=== PATIENT | female | born 1955 ===

== ENCOUNTER 2020-10-04 10:41 | Emergency (ER) | payer MEDICARE, OTHER ==
[2020-10-04 10:59] VITALS: BP 128/80; PULSE 73
[2020-10-04] MEDS ORDERED: Ondansetron 4 MG/2 ML SDV IVPUSH ONE (11:16)
[2020-10-04] MEDS ORDERED: Sodium Chloride 0.9% 10 ML Syringe FLUSH PRN ×2 (11:17→11:21)
--- NOTE | 2020-10-04 11:20 | EDM.PDOC ---
ED HPI GENERAL MEDICAL PROBLEM - General Chief Complaint: Abdominal Pain Stated Complaint: LOW ABDOMINAL PAIN Time Seen by Provider: 10/04/20 11:03 Source of Information: Reports: Patient, RN Notes Reviewed History Limitations: Reports: No Limitations - History of Present Illness INITIAL COMMENTS - FREE TEXT/NARRATIVE: Patient is a 65-year-old female who presents to the ER today for her ongoing abdominal pain. Patient states that she has a history of diverticulitis, and it feels similar to that. She notes that this started Sunday night, just has gotten progressively worse. She notes that this pain is in her low abdomen, and seems to radiate up her sides at times. States that she has had nausea but no vomiting. Her last bowel movement was normal for her on Sunday however she states it was quite hard and she had to strain a little bit. She has had no diarrhea. States that when she eats anything at all, she feels quite bloated. She has had no fevers or chills, cough or shortness of breath, or any other sick-like symptoms. She notes that she has had some slight dysuria at the start of her urination however this is transient and is not there at this time. Harshal rasmussen has had a hysterectomy but still retains her ovaries. Notes that she did not eat anything for breakfast this morning except for she had a little bit of water. Her primary care provider is in [facility]. Lower Abdomen Pain Score (Numeric/FACES): 6 - Related Data Allergies Allergy/AdvReac Type Severity Reaction Status Date / Time No Known Allergies Allergy Verified 10/04/20 10:58 Home Meds: Home Meds Amoxicillin/Clavulanate K [Augmentin 875-125 MG] 1 tab PO BID #14 tablet [Rx] Ascorbic Acid/Vitamin E/Biotin [Hair Skin Nails-Biotin Gummies] 1 tab PO DAILY 10/04/20 [History] Levothyroxine 125 mcg PO DAILY 10/04/20 [History] Rosuvastatin Calcium 10 mg PO DAILY 10/04/20 [History] Past Medical History Respiratory History: Reports: COPD Gastrointestinal History: Reports: Other (See Below) Other Gastrointestinal History: diverticulitis Endocrine/Metabolic History: Reports: Hypothyroidism - Past Surgical History Cardiovascular Surgical History: Reports: Cardiac Ablation GI Surgical History: Reports: Other (See Below) Other GI Surgeries/Procedures: abscessed diverticuli Social & Family History - Tobacco Use Tobacco Use Status *Q: Current Every Day Tobacco User Years of Tobacco use: 50 Packs/Tins Daily: 1 - Recreational Drug Use Recreational Drug Use: No ED ROS GENERAL - Review of Systems Review Of Systems: Comprehensive ROS is negative, except as noted in HPI. ED EXAM, GI/ABD - Physical Exam Exam: See Below Exam Limited By: No Limitations General Appearance: Alert, WD/WN, No Apparent Distress Eyes: Bilateral: Normal Appearance Respiratory/Chest: No Respiratory Distress, Lungs Clear, Normal Breath Sounds, No Accessory Muscle Use, Chest Non-Tender Cardiovascular: Normal Peripheral Pulses, Regular Rate, Rhythm, No Edema GI/Abdominal Exam: Normal Bowel Sounds, Soft, No Distention, No Mass, Tender (LLQ mainly) Extremities: Normal Inspection, Normal Capillary Refill Neurological: Alert, Oriented, Normal Cognition, No Motor/Sensory Deficits Psychiatric: Normal Affect, Normal Mood Skin Exam: Warm, Dry, Intact, Normal Color, No Rash Course - Vital Signs Last Recorded V/S: Last Vital Signs Temp 97 F 10/04/20 10:55 Pulse 73 10/04/20 10:55 Resp 16 10/04/20 10:55 BP 128/80 10/04/20 10:55 Pulse Ox 93 L 10/04/20 10:55 - Orders/Labs/Meds Orders: Active Orders 24 hr Category Date Time Status Peripheral IV Care [RC] . DIRECTED Care 10/04/20 11:17 Ordered UA W/MICROSCOPIC [URIN] Stat Lab 10/04/20 11:16 Ordered Sodium Chloride 0.9% [Normal Saline] 1,000 ml Med 10/04/20 11:30 Ordered IV ASDIRECTED Sodium Chloride 0.9% [Saline Flush] Med 10/04/20 11:17 Ordered 10 ml FLUSH ASDIRECTED PRN Sodium Chloride 0.9% [Saline Flush] Med 10/04/20 11:21 Active 10 ml FLUSH ONETIME PRN Peripheral IV Insertion Adult [OM.PC] Routine Oth 10/04/20 11:17 Ordered Medication Orders Sodium Chloride (Normal Saline) 1,000 mls @ 999 mls/hr IV ASDIRECTED MONICA Last Admin: 10/04/20 11:46 Dose: 999 mls/hr Documented by: LARA Sodium Chloride (Sodium Chloride 0.9% 10 Ml Syringe) 10 ml FLUSH ASDIRECTED PRN PRN Reason: Keep Vein Open Last Admin: 10/04/20 11:49 Dose: 10 ml Documented by: LARA Sodium Chloride (Sodium Chloride 0.9% 10 Ml Syringe) 10 ml FLUSH ONETIME PRN PRN Reason: IV FLUSH Last Admin: 10/04/20 12:40 Dose: 10 ml Documented by: VALENTINE Labs: Laboratory Tests 10/04/20 10/04/20 Range/Units 11:29 11:29 WBC 10.13 H (3.98-10.04) K/mm3 RBC 4.61 (3.98-5.22) M/mm3 Hgb 14.3 (11.2-15.7) gm/dl Hct 42.1 (34.1-44.9) % MCV 91.3 (79.4-94.8) fl MCH 31.0 (25.6-32.2) pg MCHC 34.0 (32.2-35.5) g/dl RDW Std Deviation 46.1 (36.4-46.3) fL Plt Count 291 (182-369) K/mm3 MPV 8.8 L (9.4-12.3) fl Neut % (Auto) 68.2 (34.0-71.1) % Lymph % (Auto) 20.5 (19.3-51.7) % [place] % (Auto) 9.0 (4.7-12.5) % Eos % (Auto) 1.7 (0.7-5.8) Baso % (Auto) 0.3 (0.1-1.2) % Neut # (Auto) 6.91 H (1.56-6.13) K/mm3 Lymph # (Auto) 2.08 (1.18-3.74) K/mm3 [place] # (Auto) 0.91 H (0.24-0.36) K/mm3 Eos # (Auto) 0.17 (0.04-0.36) K/mm3 Baso # (Auto) 0.03 (0.01-0.08) K/mm3 Manual Slide Review Normal smear Sodium 140 (136-145) mEq/L Potassium 4.2 (3.5-5.1) mEq/L Chloride 101 (98-107) mEq/L Carbon Dioxide 26 (21-32) mEq/L Anion Gap 17.2 H (5-15) BUN 13 (7-18) mg/dL Creatinine 0.9 (0.55-1.02) mg/dL Est Cr Clr Drug Dosing 52.38 mL/min Estimated GFR (MDRD) > 60 (>60) mL/min BUN/Creatinine Ratio 14.4 (14-18) Glucose 96 (70-99) mg/dL Calcium 9.5 (8.5-10.1) mg/dL Total Bilirubin 0.3 (0.2-1.0) mg/dL AST 21 (15-37) U/L ALT 38 (14-59) U/L Alkaline Phosphatase 78 (46-116) U/L C-Reactive Protein 11.7 H* (<1.0) mg/dL Total Protein 7.8 (6.4-8.2) g/dl Albumin 3.2 L (3.4-5.0) g/dl Globulin 4.6 gm/dL Albumin/Globulin Ratio 0.7 L (1-2) Lipase 103 (73-393) U/L Meds: Medications Generic Name Dose Route Start Last Admin Trade Name Freq PRN Reason Stop Dose Admin Sodium Chloride 1,000 mls @ 999 mls/hr 10/04/20 11:30 10/04/20 11:46 Normal Saline IV 999 mls/hr ASDIRECTED MONICA Administration Sodium Chloride 10 ml 10/04/20 11:10/04/20 11:49 Sodium Chloride 0.9% 10 Ml Syringe FLUSH 10 ml ASDIRECTED PRN Administration Keep Vein Open Sodium Chloride 10 ml 10/04/20 11:21 10/04/20 12:40 Sodium Chloride 0.9% 10 Ml Syringe FLUSH 10 ml ONETIME PRN Administration IV FLUSH Discontinued Medications Generic Name Dose Route Start Last Admin Trade Name Freq PRN Reason Stop Dose Admin Diatrizoate Meglum/Diatrizoate Sod 120 ml 10/04/20 11:21 10/04/20 12:40 Diatrizoate Meglumine/Diatrizoate Sodium 37% 120 Ml Bottle PO 10/04/20 11:22 30 ml ONETIME ONE Administration Iopamidol 50 ml 10/04/20 11:21 10/04/20 12:40 Iopamidol 612 Mg/Ml 50 Ml Sdv IVPUSH 10/04/20 11:22 50 ml ONETIME ONE Administration Iopamidol 100 ml 10/04/20 11:21 10/04/20 12:40 Iopamidol 612 Mg/Ml 100 Ml Bottle IVPUSH 10/04/20 11:22 100 ml ONETIME ONE Administration Ondansetron HCl 4 mg 10/04/20 11:16 10/04/20 11:46 Ondansetron 4 Mg/2 Ml Sdv IVPUSH 10/04/20 11:17 4 mg ONETIME ONE Administration - Re-Assessments/Exams Free Text/Narrative Re-Assessment/Exam: 10/04/20 11:20 Patient presents to the ER for further evaluation and treatment of her abdomen pain, pain is specifically in her left lower quadrant on palpation we will get abdomen pelvis CT with IV and oral contrast, we will also get some basic labs and give her some IV fluids and Zofran for management. 10/04/20 13:[address] has been reported, findings compatible with diverticulitis in the junction of the descending and sigmoid colon, no fluid collections of diverticular abscess are seen. There are also slightly prominent retroperitoneal lymph nodes seen, uncertain as to the etiology but he would recommend doing a repeat CT abdomen and pelvis study in about 6 months for stability purposes. Patient's white count is mildly elevated 10.31 as well and her CRP is elevated, conclusive with the diagnosis of diverticulitis, we will get the patient with some antibiotics, some pain medications and possibly some nausea medications and see if she can manage this on outpatient basis. Departure - Departure Time of Disposition: 13:40 Disposition: Home, Self-Care 01 Condition: Good Clinical Impression: Diverticulitis - Discharge Information *PRESCRIPTION DRUG MONITORING PROGRAM REVIEWED*: No *COPY OF PRESCRIPTION DRUG MONITORING REPORT IN PATIENT RICH: No Instructions: Diverticulitis, [id number] Referrals: Niranjan Min MD [Primary Care Provider] - 03/21/21 (Follow up [address] for enlarged lymph nodes on CT performed today.) Forms: ED Department Discharge Additional Instructions: You were evaluated in the ER today for your abdomen pain. Laboratory findings and CT findings were conclusive with acute diverticulitis at this time, you will be treated with oral antibiotics, Augmentin 1 tablet twice daily for the next 7 days. Please note this antibiotic can take up to 48 hours to start working, so if you do not see improvement in your symptoms by Sunday night, recommend you get seen morning by a healthcare provider for change in antibiotics. This antibiotic prescription was sent to the [facility] located in [facility] per your choice. Recommend you take 500 mg Tylenol or 600 mg ibuprofen every 6 hours for further abdomen discomfort. Do not exceed 4000 mg Tylenol or 3200 mg ibuprofen in a 24- hour time span. Your CT also demonstrated some slightly enlarged lymph nodes, and our radiologist does recommend that you have a repeat CT done in roughly 6 months to confirm that they have not gotten larger. This may be done in March 2021. Please contact your primary care provider, to try to get an appointment to set this up for future evaluation. Please return to the ER at any time if symptoms change or worsen. Sepsis Event Note (ED) - Evaluation Sepsis Screening Result: No Definite Risk - Focused Exam Vital Signs: Vital Signs Temp Pulse Resp BP Pulse Ox 10/04/20 10:55 97 F 73 16 128/80 93 L - My Orders Last 24 Hours: My Active Orders 10/04/20 11:16 UA W/MICROSCOPIC [URIN] Stat 10/04/20 11:17 Peripheral IV Care [RC] . DIRECTED Sodium Chloride 0.9% [Saline Flush] 10 ml FLUSH ASDIRECTED PRN Peripheral IV Insertion Adult [OM.PC] Routine 10/04/20 11:21 Sodium Chloride 0.9% [Saline Flush] 10 ml FLUSH ONETIME PRN 10/04/20 11:30 Sodium Chloride 0.9% [Normal Saline] 1,000 ml IV ASDIRECTED - Assessment/Plan Last 24 Hours: My Active Orders 10/04/20 11:16 UA W/MICROSCOPIC [URIN] Stat 10/04/20 11:17 Peripheral IV Care [RC] . DIRECTED Sodium Chloride 0.9% [Saline Flush] 10 ml FLUSH ASDIRECTED PRN Peripheral IV Insertion Adult [OM.PC] Routine 10/04/20 11:21 Sodium Chloride 0.9% [Saline Flush] 10 ml FLUSH ONETIME PRN 10/04/20 11:30 Sodium Chloride 0.9% [Normal Saline] 1,000 ml IV ASDIRECTED
[2020-10-04] MEDS ORDERED: Diatrizoate Meglumine/Diatrizoate Sodium 37% 120 ML Bottle PO ONE (11:21)
[2020-10-04] MEDS ORDERED: Iopamidol 612 MG/ML 50 ML SDV IVPUSH ONE (11:21)
[2020-10-04] MEDS ORDERED: Iopamidol 612 MG/ML 100 ML Bottle IVPUSH ONE (11:21)
[2020-10-04] MEDS ORDERED: Sodium Chloride 0.9% 1,000 ML IV SCH (11:30)
--- NOTE | 2020-10-04 13:09 | CT ---
CT abdomen and pelvis Technique: Multiple axial sections were obtained from above the dome of diaphragm inferiorly through the pubic symphysis. Intravenous and oral contrast was given. Reconstructed coronal and sagittal images were obtained. Delayed images were also obtained through the bladder. Comparison: No prior CT abdomen or pelvis study is available. Findings: Visualized lung bases show nothing acute. Liver shows no focal abnormality. Minimal low density is seen next to the ligamentum teres fissure compatible with incidental fat. Spleen size is normal. Small hiatal hernia is noted. Body of the left adrenal gland is slightly nodular which is most likely benign. Right adrenal gland is normal. Pancreas appears within normal limits. Kidneys show symmetric contrast enhancement without hydronephrosis or mass. Abdominal aorta shows no aneurysm. Slight retroperitoneal lymph nodes are seen which are mildly prominent with the largest lymph node measuring approximately 1.2 cm. Inflammatory change is seen around the left colon near the junction of the descending sigmoid region. This occurs in an area of diverticuli and is felt compatible with diverticulitis. No fluid is seen to indicate an abscess. Appendix is seen which is normal. No additional pelvic abnormality is appreciated. Contrast is noted within the distal ureters and within the bladder on delayed images. Bone window settings were reviewed which show scattered degenerative change within the spine. No acute osseous abnormality is appreciated. Impression: 1. Findings compatible with diverticulitis in the junction of the descending and sigmoid colon. No fluid collections of diverticular abscess are seen. 2. Slightly prominent retroperitoneal lymph nodes are seen. Uncertain as to etiology of this finding, recommend repeat CT abdomen and pelvis study in 6 months to confirm stability. This would occur in March,. 3. Other findings as noted above which are likely incidental. Diagnostic code #3
== END 2020-10-04 13:53 | disposition home or self-care (01) ==
LOC: JD.ED 10:41
DX: K57.32 Diverticulitis of large intestine without perforation or abscess without bleeding (principal); J44.9 Chronic obstructive pulmonary disease, unspecified; E03.9 Hypothyroidism, unspecified; Z79.899 Other long term (current) drug therapy
CPT/HCPCS: 36415; 74177; 80053; 83690; 85025; 86140; 96374; 99284; J2405; J7030; Q9963; Q9967

== ENCOUNTER 2020-10-11 09:43 | Emergency (ER) | payer MEDICARE, OTHER ==
[2020-10-11 10:06] VITALS: BP 128/77; PULSE 70
--- NOTE | 2020-10-11 11:02 | EDM.PDOC ---
ED HPI GENERAL MEDICAL PROBLEM - General Chief Complaint: Abdominal Pain Stated Complaint: ABDOMINAL PAIN/NAUSEA Time Seen by Provider: 10/11/20 10:17 Source of Information: Reports: Patient, Old Records History Limitations: Reports: No Limitations, Other (ED vital signs reveal a temp of 97.3, pulse of 70, respiratory rate of 18, blood pressure 128/77, pulse ox 93% on room air.) - History of Present Illness INITIAL COMMENTS - FREE TEXT/NARRATIVE: 65-year-old female presents to the emergency department today with complaints of left lower quadrant and suprapubic abdominal pain. Patient was seen in the emergency department on 10/04/2020 with similar complaints she had a CT scan completed at that time and findings were compatible with diverticulitis in the junction of the descending and sigmoid colon, no fluid collections of diverticular abscess were seen. Patient's white count was elevated at that time at 10.31 as well as her CRP. She was started on Augmentin at that time and took her last dose today. She states that midway through the course of her antibiotic treatment she did start to feel better however over the course of the past few days she has stated that her abdominal pain has since returned and worsened in severity. She states she did have chills noted last evening and has been nauseated over the entire course of her treatment with antibiotics. She has not vomited. She has not had a headache, and she denies fever. She states that prior to starting the antibiotics she was constipated however has noted soft formed stools since being on the antibiotic. She denies any diarrhea. She states there is blood noted in her stool however she contributes it to bleeding hemorrhoids. She does admit to having urinary symptoms. She states that she fe els like there is pressure and some burning noted as well as cystitis. Patient states that she had been on a bland diet however 2 days ago she had family home and states that she had ribs with heavy seasoning and corn on the cob in addition to other foods. Patient has a history of high cholesterol and hypothyroidism. The patient does admit does admit to smoking. Her primary care physician is Dr. Santacruz. lower abd Pain Score (Numeric/FACES): 7 - Related Data Allergies Allergy/AdvReac Type Severity Reaction Status Date / Time No Known Allergies Allergy Verified 10/04/20 10:58 Home Meds: Home Meds Amoxicillin/Clavulanate K [Augmentin 875-125 MG] 1 tab PO BID #14 tablet 10/04/20 [Rx] Ascorbic Acid/Vitamin E/Biotin [Hair Skin Nails-Biotin Gummies] 1 tab PO DAILY 10/04/20 [History] Levothyroxine 125 mcg PO DAILY 10/04/20 [History] Rosuvastatin Calcium 10 mg PO DAILY 10/04/20 [History] oxyCODONE HCl/Acetaminophen [Oxycodon-Acetaminophen 2.5-300] 1 each PO Q6H #10 tablet 10/11/20 [Rx] Past Medical History Respiratory History: Reports: COPD Gastrointestinal History: Reports: Other (See Below) Other Gastrointestinal History: diverticulitis Endocrine/Metabolic History: Reports: Hypothyroidism - Past Surgical History Cardiovascular Surgical History: Reports: Cardiac Ablation GI Surgical History: Reports: Other (See Below) Other GI Surgeries/Procedures: abscessed diverticuli Social & Family History - Tobacco Use Tobacco Use Status *Q: Current Every Day Tobacco User Years of Tobacco use: 50 Packs/Tins Daily: 0.7 - Recreational Drug Use Recreational Drug Use: No ED ROS GENERAL - Review of Systems Review Of Systems: Comprehensive ROS is negative, except as noted in HPI. ED EXAM, GI/ABD - Physical Exam Exam: See Below Exam Limited By: No Limitations General Appearance: Alert, WD/WN, No Apparent Distress Ears: Normal External Exam, Hearing Grossly Normal Nose: Normal Inspection Throat/Mouth: Normal Inspection, Normal Lips, Normal Voice, No Airway Compromise Head: Atraumatic Neck: Normal Inspection, Supple Respiratory/Chest: No Respiratory Distress, Lungs Clear, Normal Breath Sounds, No Accessory Muscle Use, Chest Non-Tender Cardiovascular: Normal Peripheral Pulses, Regular Rate, Rhythm, No Edema, No Murmur GI/Abdominal Exam: Normal Bowel Sounds, Soft, Distended, Tender (Left lower quadrant tenderness; suprapubic tenderness) (Female) Exam: Deferred Rectal (Female) Exam: Deferred Back Exam: Normal Inspection Extremities: Normal Inspection, No Pedal Edema Neurological: Alert, Oriented, Normal Cognition Psychiatric: Normal Affect, Normal Mood Skin Exam: Warm, Dry, Intact, Normal Color, No Rash Lymphatic: No Adenopathy Course - Vital Signs Text/Narrative:: Patient presents with left lower quadrant abdominal pain and suprapubic pain. Was diagnosed with diverticulitis on 10/04/2020. Was started on Augmentin 1 tab twice daily for 7 days. However over the course of the last few days her left lower quadrant abdominal pain and suprapubic pain have returned and worsened. She did have chills last evening and has been nauseated for the past week. I have ordered labs including a CBC, CMP, and a C-reactive protein. Patient will have a repeat CT scan to rule out abscess formation. Last Recorded V/S: Last Vital Signs Temp 97.3 F 10/11/20 10:01 Pulse 70 10/11/20 10:01 Resp 18 10/11/20 10:01 BP 128/77 10/11/20 10:01 Pulse Ox 93 L 10/11/20 10:01 - Orders/Labs/Meds Orders: Active Orders 24 hr Category Date Time Status CULTURE URINE [MREF] Stat Lab 10/11/20 11:48 Received Sodium Chloride 0.9% [Normal Saline] 1,000 ml Med 10/11/20 12:00 Active IV ASDIRECTED Sodium Chloride 0.9% [Saline Flush] Med 10/11/20 12:06 Active 10 ml FLUSH ONETIME PRN Medication Orders Sodium Chloride (Normal Saline) 1,000 mls @ 150 mls/hr IV ASDIRECTED MONICA Last Admin: 10/11/20 12:04 Dose: 150 mls/hr Documented by: OPAL Sodium Chloride (Sodium Chloride 0.9% 10 Ml Syringe) 10 ml FLUSH ONETIME PRN PRN Reason: IV FLUSH Last Admin: 10/11/20 13:13 Dose: 10 ml Documented by: VALENTINE Labs: Laboratory Tests 10/11/20 10/11/20 10/11/20 Range/Units 10:54 10:54 11:48 WBC 9.12 (3.98-10.04) K/mm3 RBC 4.82 (3.98-5.22) M/mm3 Hgb 14.7 (11.2-15.7) gm/dl Hct 44.5 (34.1-44.9) % MCV 92.3 (79.4-94.8) fl MCH 30.5 (25.6-32.2) pg MCHC 33.0 (32.2-35.5) g/dl RDW Std Deviation 46.2 (36.4-46.3) fL Plt Count 350 (182-369) K/mm3 MPV 8.7 L (9.4-12.3) fl Neut % (Auto) 65.0 (34.0-71.1) % Lymph % (Auto) 23.5 (19.3-51.7) % [place] % (Auto) 6.8 (4.7-12.5) % Eos % (Auto) 4.1 (0.7-5.8) Baso % (Auto) 0.2 (0.1-1.2) % Neut # (Auto) 5.93 (1.56-6.13) K/mm3 Lymph # (Auto) 2.14 (1.18-3.74) K/mm3 [place] # (Auto) 0.62 H (0.24-0.36) K/mm3 Eos # (Auto) 0.37 H (0.04-0.36) K/mm3 Baso # (Auto) 0.02 (0.01-0.08) K/mm3 Sodium 140 (136-145) mEq/L Potassium 4.4 (3.5-5.1) mEq/L Chloride 102 (98-107) mEq/L Carbon Dioxide 29 (21-32) mEq/L Anion Gap 13.4 (5-15) BUN 14 (7-18) mg/dL Creatinine 1.0 (0.55-1.02) mg/dL Est Cr Clr Drug Dosing 47.14 mL/min Estimated GFR (MDRD) 55 (>60) mL/min BUN/Creatinine Ratio 14.0 (14-18) Glucose 90 (70-99) mg/dL Calcium 9.5 (8.5-10.1) mg/dL Magnesium 2.1 (1.8-2.4) mg/dL Total Bilirubin 0.3 (0.2-1.0) mg/dL AST 23 (15-37) U/L ALT 46 (14-59) U/L Alkaline Phosphatase 81 (46-116) U/L C-Reactive Protein 1.8 H* (<1.0) mg/dL Total Protein 7.7 (6.4-8.2) g/dl Albumin 3.4 (3.4-5.0) g/dl Globulin 4.3 gm/dL Albumin/Globulin Ratio 0.8 L (1-2) Urine Color Yellow (Yellow) Urine Appearance Clear (Clear) Urine pH 7.5 (5.0-8.0) Ur Specific [place] 1.020 (1.005-1.030) Urine Protein Negative (Negative) Urine Glucose (UA) Negative (Negative) Urine Ketones Negative (Negative) Urine Occult Blood Negative (Negative) Urine Nitrite Negative (Negative) Urine Bilirubin Negative (Negative) Urine Urobilinogen 0.2 (0.2-1.0) Ur Leukocyte Esterase 1+ H (Negative) Urine RBC 0-5 (0-5) /hpf Urine WBC 5-10 H (0-5) /hpf Ur Squamous Epith Cells 0-5 (0-5) /hpf Urine Bacteria Few (FEW) /hpf Urine Mucus Few (FEW) /hpf Meds: Medications Generic Name Dose Route Start Last Admin Trade Name Angella PRN Reason Stop Dose Admin Sodium Chloride 1,000 mls @ 150 mls/hr 10/11/20 12:00 10/11/20 12:04 Normal Saline IV 150 mls/hr ASDIRECTED MONICA Administration Sodium Chloride 10 ml 10/11/20 12:06 10/11/20 13:13 Sodium Chloride 0.9% 10 Ml Syringe FLUSH 10 ml ONETIME PRN Administration IV FLUSH Discontinued Medications Generic Name Dose Route Start Last Admin Trade Name Freq PRN Reason Stop Dose Admin Diatrizoate Meglum/Diatrizoate Sod 120 ml 10/11/20 12:06 10/11/20 13:14 Diatrizoate Meglumine/Diatrizoate Sodium 37% 120 Ml Bottle PO 10/11/20 12:07 30 ml ONETIME ONE Administration Hydromorphone HCl 0.5 mg 10/11/20 11:55 10/11/20 12:02 Hydromorphone 0.5 Mg/0.5 Ml Syringe IVPUSH 10/11/20 11:56 0.5 mg ONETIME ONE Administration Iopamidol 50 ml 10/11/20 12:06 10/11/20 13:13 Iopamidol 612 Mg/Ml 50 Ml Sdv IVPUSH 10/11/20 12:07 50 ml ONETIME ONE Administration Iopamidol 100 ml 10/11/20 12:06 10/11/20 13:13 Iopamidol 612 Mg/Ml 100 Ml Bottle IVPUSH 10/11/20 12:07 100 ml ONETIME ONE Administration Ondansetron HCl 4 mg 10/11/20 11:55 10/11/20 12:02 Ondansetron 4 Mg/2 Ml Sdv IVPUSH 10/11/20 11:56 4 mg ONETIME ONE Administration - Re-Assessments/Exams Free Text/Narrative Re-Assessment/Exam: 10/11/20 12:53 Hematology reveals a WBC of 9.12, hemoglobin 14.7, hematocrit 44.5, chemistry reveals a sodium of 140, potassium 4.4, anion gap 13.4, BUN 14, creatinine 1.0, GFR 55, glucose 90, magnesium 2.1, AST 23, ALT 46, C-reactive protein 1.8 Urinalysis reveals 1+ leuk esterase, 5-10 WBCs, urine will be sent for culture. I have ordered a CT of the abdomen pelvis. 10/11/20 13:[address] of the abdomen and pelvis: Liver contains no focal parenchymal abnormality. There is minimal low-density Ligamentum teres fissures which is incidental. Spleen size is normal. Slight nodularity is seen within the left adrenal gland believed to be incidental. Right adrenal gland is within normal limits. Gallbladder contains no calcified gallstones. Pancreas is within normal limits. Abdominal aorta shows no aneurysm. Small lymph nodes are seen within the retroperitoneum which are stable. No mesenteric abnormalities are seen. Appendix is seen which is normal. Slight inflammatory changes seen at the junction of the descending and sigmoid colon. These findings are noted on prior study and show improvement. Numerous diverticuli are seen. No additional inflammatory change or other abnormality is appreciated. Bone window settings were reviewed which show mild scattered degenerative change within the spine. No acute osseous abnormality is appreciated. 10/11/20 14:[address] scan shows that diverticulitis is resolving and labs do not reveal any sign of infection, I am going to discharge this patient to home with recommendations that she stick with a bland diet and then follow-up with her primary care physician later this week or first thing next week. She is agreeable to this plan. I will send her home with a few Percocet for breakthrough pain. Departure - Departure Time of Disposition: 14:16 Disposition: Home, Self-Care 01 Condition: Good Clinical Impression: Diverticulitis - Discharge Information Prescriptions: oxyCODONE HCl/Acetaminophen [Oxycodon-Acetaminophen 2.5-300] 1 each PO Q6H #10 tablet Instructions: Pain Medicine Instructions, [id number] Referrals: Niranjan Min MD [Primary Care Provider] - Forms: ED Department Discharge Additional Instructions: You were seen in the emergency department today with complaints of abdominal pain. You were recently diagnosed with diverticulitis however your placed on a course of antibiotics which you took the last pill today. Stated that symptoms were resolving however today worsened. You did admit to eating ribs and ordered over the weekend after being on a bland diet. I suspect this was the cause of your discomfort and was your lab work and CT scan all show resolving diverticulitis. Recommend that you stick with a bland diet for the next week as well as staying away from caffeine. Drink plenty of fluids. Rest. Follow-up with your primary care provider later this week or first thing next week. You may take Percocet 1 tab by mouth every 6 hours as needed for more severe pain otherwise try and stick with Tylenol 650 mg every 4 hours. Should your condition worsen or change, do not hesitate returning to the emergency department. Sepsis Event Note (ED) - Evaluation Sepsis Screening Result: No Definite Risk - Focused Exam Vital Signs: Vital Signs Temp Pulse Resp BP Pulse Ox 10/11/20 10:01 97.3 F 70 18 128/77 93 L - My Orders Last 24 Hours: My Active Orders 10/11/20 11:48 CULTURE URINE [MREF] Stat 10/11/20 12:00 Sodium Chloride 0.9% [Normal Saline] 1,000 ml IV ASDIRECTED 10/11/20 12:06 Sodium Chloride 0.9% [Saline Flush] 10 ml FLUSH ONETIME PRN - Assessment/Plan Last 24 Hours: My Active Orders 10/11/20 11:48 CULTURE URINE [MREF] Stat 10/11/20 12:00 Sodium Chloride 0.9% [Normal Saline] 1,000 ml IV ASDIRECTED 10/11/20 12:06 Sodium Chloride 0.9% [Saline Flush] 10 ml FLUSH ONETIME PRN
[2020-10-11] MEDS ORDERED: Ondansetron 4 MG/2 ML SDV IVPUSH ONE (11:55)
[2020-10-11] MEDS ORDERED: HYDROmorphone 0.5 MG/0.5 ML Syringe IVPUSH ONE (11:55)
[2020-10-11] MEDS ORDERED: Sodium Chloride 0.9% 1,000 ML IV SCH (12:00)
[2020-10-11] MEDS ORDERED: Iopamidol 612 MG/ML 50 ML SDV IVPUSH ONE (12:06)
[2020-10-11] MEDS ORDERED: Diatrizoate Meglumine/Diatrizoate Sodium 37% 120 ML Bottle PO ONE (12:06)
[2020-10-11] MEDS ORDERED: Iopamidol 612 MG/ML 100 ML Bottle IVPUSH ONE (12:06)
[2020-10-11] MEDS ORDERED: Sodium Chloride 0.9% 10 ML Syringe FLUSH PRN (12:06)
--- NOTE | 2020-10-11 13:45 | CT ---
CT abdomen and pelvis Technique: Multiple axial sections were obtained from above the dome of the diaphragm inferiorly through the pubic symphysis. Intravenous and oral contrast was utilized. Reconstructed coronal and sagittal images were obtained. Comparison: Prior CT abdomen and pelvis study of 10/04/20. Findings: Visualized lung bases show nothing acute. Liver contains no focal parenchymal abnormality. There is minimal low density next to the ligamentum teres fissure which is incidental. Spleen size is normal. Slight nodularity is seen within the left adrenal gland believed to be incidental. Right adrenal gland is within normal limits. Gallbladder contains no calcified gallstones. Pancreas is within normal limits. Abdominal aorta shows no aneurysm. Small lymph nodes are seen within the retroperitoneum which are stable. No mesenteric abnormalities are seen. Appendix is seen which is normal. Slight inflammatory change is seen at the junction of the descending and sigmoid colon. These findings are noted on prior study and show improvement. Numerous diverticuli are seen. No additional inflammatory change or other abnormality is appreciated. Bone window settings were reviewed which show mild scattered degenerative change within the spine. No acute osseous abnormality is appreciated. Impression: 1. Findings which are felt compatible with resolving diverticulitis at the junction of the descending and sigmoid colon. 2. Stable small lymph nodes within the retroperitoneum 3. Nothing acute is otherwise seen. Diagnostic code #2
== END 2020-10-11 14:30 | disposition home or self-care (01) ==
LOC: JD.ED 09:43
DX: K57.32 Diverticulitis of large intestine without perforation or abscess without bleeding (principal); J44.9 Chronic obstructive pulmonary disease, unspecified; E03.9 Hypothyroidism, unspecified; Z79.899 Other long term (current) drug therapy; Z72.0 Tobacco use
CPT/HCPCS: 36415; 74177; 80053; 81001; 83735; 85025; 86140; 87086; 96374; 96375; 99284; J1170; J2405; J7030; Q9963; Q9967